=== PATIENT | male | born 1950 | race Caucasian/White ===

== ENCOUNTER 2020-04-21 07:27 | Inpatient (IN) | payer MEDICAID, MEDICARE ==
[~2020-04-21] VITALS: Ht 172.7 cm; Wt 77.7 kg
[2020-04-21] MEDS ORDERED: LIDOCAINE 2%, 20ML ONE (07:29)
[2020-04-21] MEDS ORDERED: FENTANYL PF 250 MCG/5ML ONE (07:29)
[2020-04-21] MEDS ORDERED: BIVALIRUDIN 250 MG ONE (07:29)
[2020-04-21] MEDS ORDERED: MIDAZOLAM 1 MG/ML, 5ML ONE (07:29)
[2020-04-21] MEDS ORDERED: ASPIRIN 325 MG TABLET PO STA (07:33)
--- NOTE | 2020-04-21 07:34 | NUR ---
CODE CARDIAC @ [id number] PAGED CARDS @ [id number]
--- NOTE | 2020-04-21 07:44 | NUR ---
to labor relations teacher at [id number]
[2020-04-21 07:51] LABS: BASOPHILS % (AUTO) 1 % (0-1); EOSINOPHILS % (AUTO) 2 % (1-7); LYMPHOCYTES % (AUTO) 12 % (22-44); MD NO; MEAN CORPUSCULAR HEMOGLOBIN 31.2 pg (27.5-34.5); MEAN CORPUSCULAR HGB CONC 33.5 g/dL (33.2-36.2); MEAN PLATELET VOLUME 7.1 fL (7.4-10.4); MONOCYTES % (AUTO) 10 % (2-9); NEUTROPHILS % (AUTO) 75 % (42-75); PLATELET COUNT 345 x10^3/uL (130-400); RED BLOOD COUNT 4.38 x10^6/uL (4.38-5.82); RED CELL DISTRIBUTION WIDTH 14.3 % (9.4-14.8)
[2020-04-21] MEDS ORDERED: PLEASE ENTER ALLERGIES MC SCH (08:00)
[2020-04-21] MEDS ORDERED: SODIUM CHLORIDE FLUSH 10ML SYR IVF PRN (08:00)
[2020-04-21 08:04] LABS: INTERNATIONAL NORMALIZED RATIO 1.03 (0.93-1.1)
[2020-04-21] MEDS ORDERED: AMIODARONE 50 MG/ML, 3ML ONE (08:06)
[2020-04-21] MEDS ORDERED: FUROSEMIDE 40 MG/4 ML ONE (08:08)
[2020-04-21 08:11] LABS: TROPONIN I 0.413 ng/mL (0.000-0.045)
[2020-04-21] MEDS ORDERED: PRASUGREL 10 MG TABLET ONE (08:15)
[2020-04-21] MEDS: PRASUGREL 10 MG TABLET PO SCH (09:00)
[2020-04-21] MEDS ORDERED: NITROGLYCERIN 0.4 MG BOTTLE (25 TABS) SL PRN (09:00)
[2020-04-21] MEDS ORDERED: BIVALIRUDIN 250 MG in SODIUM CHLORIDE 0.9% 50 ML IV SCH (09:00)
[2020-04-21] MEDS ORDERED: NITROGLYCERIN 0.4 MG/SPRAY SL PRN (09:00)
[2020-04-21] MEDS ORDERED: morphine SULFATE 10 MG/ML, 1ML IVPush PRN (09:00)
[2020-04-21] MEDS ORDERED: ZOLPIDEM 5MG TABLET PO PRN (09:00)
[2020-04-21] MEDS ORDERED: BISACODYL 5 MG EC TABLET PO PRN (09:00)
[2020-04-21] MEDS: METOPROLOL TARTRATE 25 MG TAB PO SCH ×2 (09:30→20:24)
[2020-04-21] MEDS ORDERED: LORazepam 2 MG/ML, 1ML IVPush PRN (14:30)
[2020-04-21 15:20] LABS: ALBUMIN 2.9 g/dL (3.4-5.0); ANION GAP 7 mmol/L (5-15); CALCIUM 8.4 mg/dL (8.5-10.1); CHLORIDE 107 mmol/L (98-107)
[2020-04-21 15:22] LABS: ALANINE AMINOTRANSFERASE 41 U/L (12-78); ALKALINE PHOSPHATASE 75 U/L (45-117); BILIRUBIN,TOTAL 0.2 mg/dL (0.2-1.0); CREATININE 0.83 mg/dL (0.7-1.3); TOTAL PROTEIN 7.1 g/dL (6.4-8.2)
[2020-04-21] MEDS: NICOTINE 21 MG/24 HR PATCH.TD24 TD SCH (15:41)
[2020-04-21] MEDS: CHLORDIAZEPOXIDE 25 MG CAPSULE PO SCH ×2 (15:41→20:25)
[2020-04-21] MEDS: THIAMINE 200 MG in SODIUM CHLORIDE 0.9% 50 ML IV SCH (15:42)
[2020-04-21] MEDS ORDERED: MAGNESIUM SULFATE PMX 2GM/50ML 50 ML IV ONE (17:00)
[2020-04-21] MEDS ORDERED: POTASSIUM CHLORIDE 30 MEQ in SODIUM CHLORIDE 0.9% 1,000 ML IV SCH (17:00)
[2020-04-21 17:06] LABS: CLOSTRIDIUM DIFFICILE ANTIGEN NEGATIVE; CLOSTRIDIUM DIFFICILE TOXIN NEGATIVE (Negative)
[2020-04-21] MEDS ORDERED: LOPERAMIDE 2 MG CAPSULE PO PRN (17:30)
[2020-04-21] MEDS: ATORVASTATIN 80 MG TABLET PO SCH (20:25)
[2020-04-22] MEDS: CHLORDIAZEPOXIDE 25 MG CAPSULE PO SCH ×5 (02:30→21:23)
[2020-04-22 04:38] LABS: ANION GAP 7 mmol/L (5-15); CHLORIDE 107 mmol/L (98-107)
[2020-04-22 04:40] LABS: CREATININE 0.71 mg/dL (0.7-1.3)
[2020-04-22] MEDS: ASPIRIN 81 MG TABLET EC PO SCH (06:01)
[2020-04-22] MEDS: METOPROLOL TARTRATE 25 MG TAB PO SCH ×2 (09:00→21:25)
[2020-04-22 09:19] LABS: BASOPHILS % (AUTO) 1 % (0-1); EOSINOPHILS % (AUTO) 2 % (1-7); LYMPHOCYTES % (AUTO) 14 % (22-44); MEAN CORPUSCULAR HEMOGLOBIN 30.7 pg (27.5-34.5); MEAN CORPUSCULAR HGB CONC 33.3 g/dL (33.2-36.2); MEAN PLATELET VOLUME 7.8 fL (7.4-10.4); MONOCYTES % (AUTO) 10 % (2-9); NEUTROPHILS % (AUTO) 74 % (42-75); PLATELET COUNT 397 x10^3/uL (130-400); RED CELL DISTRIBUTION WIDTH 14.8 % (9.4-14.8)
[2020-04-22 09:20] LABS: MD NO
[2020-04-22] MEDS: SODIUM CHLORIDE FLUSH 10ML SYR IVF SCH ×2 (09:32→21:26)
[2020-04-22] MEDS: NICOTINE 21 MG/24 HR PATCH.TD24 TD SCH (09:32)
[2020-04-22] MEDS: PRASUGREL 10 MG TABLET PO SCH (09:32)
[2020-04-22] MEDS: THIAMINE 200 MG in SODIUM CHLORIDE 0.9% 50 ML IV SCH (09:32)
[2020-04-22 10:53] LABS: ALANINE AMINOTRANSFERASE 40 U/L (12-78); ALBUMIN 2.8 g/dL (3.4-5.0)
[2020-04-22 10:56] LABS: ALKALINE PHOSPHATASE 69 U/L (45-117); BILIRUBIN,TOTAL 0.5 mg/dL (0.2-1.0); TOTAL PROTEIN 6.6 g/dL (6.4-8.2)
[2020-04-22] MEDS: PANTOPRAZOLE 40MG TABLET PO SCH (17:00)
[2020-04-22 18:00] VITALS: BP 97/66
[2020-04-22 21:20] VITALS: BP 106/73
[2020-04-22] MEDS: ATORVASTATIN 80 MG TABLET PO SCH (21:23)
[2020-04-23 02:31] VITALS: BP 94/58
[2020-04-23] MEDS: CHLORDIAZEPOXIDE 25 MG CAPSULE PO SCH ×4 (02:39→21:01)
[2020-04-23 04:52] LABS: BASOPHILS % (AUTO) 1 % (0-1); EOSINOPHILS % (AUTO) 3 % (1-7); LYMPHOCYTES % (AUTO) 20 % (22-44); MEAN CORPUSCULAR HEMOGLOBIN 31.5 pg (27.5-34.5); MEAN CORPUSCULAR HGB CONC 33.9 g/dL (33.2-36.2); MEAN PLATELET VOLUME 7.4 fL (7.4-10.4); MONOCYTES % (AUTO) 16 % (2-9); NEUTROPHILS % (AUTO) 61 % (42-75); PLATELET COUNT 382 x10^3/uL (130-400); RED BLOOD COUNT 4.53 x10^6/uL (4.38-5.82); RED CELL DISTRIBUTION WIDTH 14.5 % (9.4-14.8)
[2020-04-23 05:03] LABS: ANION GAP 5 mmol/L (5-15); CALCIUM 8.2 mg/dL (8.5-10.1); CHLORIDE 105 mmol/L (98-107)
[2020-04-23 05:04] LABS: CREATININE 0.74 mg/dL (0.7-1.3)
[2020-04-23 05:43] LABS: MD SCAN
[2020-04-23] MEDS: PANTOPRAZOLE 40MG TABLET PO SCH ×2 (05:58→16:59)
[2020-04-23] MEDS: ASPIRIN 81 MG TABLET EC PO SCH (05:59)
[2020-04-23 07:08] VITALS: BP 96/64
[2020-04-23] MEDS ORDERED: LORazepam 0.5MG TABLET PO PRN (08:00)
[2020-04-23] MEDS ORDERED: LORazepam 1MG TABLET PO PRN ×3 (08:00)
[2020-04-23] MEDS ORDERED: LORazepam 2 MG/ML, 1ML IV PRN ×5 (08:00)
[2020-04-23 08:09] VITALS: BP 96/62
[2020-04-23] MEDS: METOPROLOL TARTRATE 25 MG TAB PO SCH ×2 (08:10→21:02)
[2020-04-23] MEDS: PRASUGREL 10 MG TABLET PO SCH (08:11)
[2020-04-23] MEDS: SODIUM CHLORIDE FLUSH 10ML SYR IVF SCH ×2 (08:12→21:02)
[2020-04-23] MEDS: NICOTINE 21 MG/24 HR PATCH.TD24 TD SCH (08:12)
[2020-04-23] MEDS: THIAMINE 200 MG in SODIUM CHLORIDE 0.9% 50 ML IV SCH (08:27)
[2020-04-23] MEDS ORDERED: MOVIPREP POWDER 1 PREP KIT PO ONE (12:30)
[2020-04-23 15:50] VITALS: BP 101/66
[2020-04-23] MEDS: LORazepam 1MG TABLET PO PRN (16:59)
[2020-04-23 19:04] VITALS: BP 123/81
[2020-04-23] MEDS: ATORVASTATIN 80 MG TABLET PO SCH (21:02)
[2020-04-24 00:07] VITALS: BP 110/75
[2020-04-24] MEDS: CHLORDIAZEPOXIDE 25 MG CAPSULE PO SCH ×4 (03:33→20:01)
[2020-04-24 05:03] LABS: ANION GAP 7 mmol/L (5-15); CALCIUM 8.1 mg/dL (8.5-10.1); CHLORIDE 107 mmol/L (98-107); CREATININE 0.78 mg/dL (0.7-1.3)
[2020-04-24] MEDS: PANTOPRAZOLE 40MG TABLET PO SCH ×3 (06:13→15:00)
[2020-04-24 06:22] VITALS: BP 105/63
[2020-04-24] MEDS: METOPROLOL TARTRATE 25 MG TAB PO SCH ×2 (07:59→20:01)
[2020-04-24] MEDS: NICOTINE 21 MG/24 HR PATCH.TD24 TD SCH (08:00)
[2020-04-24] MEDS: SODIUM CHLORIDE FLUSH 10ML SYR IVF SCH ×2 (08:00→21:21)
[2020-04-24] MEDS: THIAMINE 200 MG in SODIUM CHLORIDE 0.9% 50 ML IV SCH (08:23)
[2020-04-24] MEDS: PRASUGREL 10 MG TABLET PO SCH (08:23)
[2020-04-24] MEDS: ASPIRIN 81 MG TABLET EC PO SCH (08:23)
[2020-04-24] MEDS ORDERED: CHLORHEXIDINE 15 ML UDC ONE (09:45)
[2020-04-24] MEDS ORDERED: PROPOFOL 50 ML ONE (10:20)
[2020-04-24] MEDS ORDERED: LABETALOL 5MG/ML, 20ML IV PRN (10:30)
[2020-04-24] MEDS ORDERED: hydrALAzine 20 MG/ML, 1ML IV PRN (10:30)
[2020-04-24] MEDS ORDERED: OXYcodone 5 MG/5 ML ORAL.SOL UDC PO PRN (10:30)
[2020-04-24] MEDS ORDERED: ALBUTEROL SULFATE 2.5 MG/3 ML NPPB PRN (10:30)
[2020-04-24] MEDS ORDERED: FENTANYL PF 100 MCG/2ML IV PRN (10:30)
[2020-04-24] MEDS ORDERED: ONDANSETRON 2MG/ML, 2ML IVPush PRN (10:30)
[2020-04-24] MEDS: MESALAMINE 1,000 MG SUPP.RECT PR SCH ×2 (11:00→21:21)
[2020-04-24] MEDS ORDERED: PROPOFOL 10 MG/ML, 20ML ONE (11:04)
[2020-04-24] MEDS: LORazepam 1MG TABLET PO PRN (12:20)
[2020-04-24 13:16] VITALS: BP 101/72
[2020-04-24 19:57] VITALS: BP 111/73
[2020-04-24] MEDS: ATORVASTATIN 80 MG TABLET PO SCH (20:01)
[2020-04-25 00:37] VITALS: BP 106/72
[2020-04-25] MEDS: CHLORDIAZEPOXIDE 25 MG CAPSULE PO SCH ×3 (04:25→13:44)
[2020-04-25] MEDS: PANTOPRAZOLE 40MG TABLET PO SCH ×2 (06:29→13:43)
[2020-04-25] MEDS: ASPIRIN 81 MG TABLET EC PO SCH (06:29)
[2020-04-25 06:34] VITALS: BP 122/85
[2020-04-25] MEDS: NICOTINE 21 MG/24 HR PATCH.TD24 TD SCH (07:54)
[2020-04-25] MEDS: PRASUGREL 10 MG TABLET PO SCH (07:55)
[2020-04-25] MEDS: SODIUM CHLORIDE FLUSH 10ML SYR IVF SCH (07:55)
[2020-04-25] MEDS: METOPROLOL TARTRATE 25 MG TAB PO SCH (07:55)
[2020-04-25 07:58] LABS: ANION GAP 4 mmol/L (5-15); CALCIUM 9.2 mg/dL (8.5-10.1); CHLORIDE 107 mmol/L (98-107); CREATININE 0.82 mg/dL (0.7-1.3)
[2020-04-25] MEDS: MESALAMINE 1,000 MG SUPP.RECT PR SCH (09:00)
[2020-04-25] MEDS: THIAMINE 200 MG in SODIUM CHLORIDE 0.9% 50 ML IV SCH (09:00)
[2020-04-25] MEDS ORDERED: PRED20TA PO (11:04)
[2020-04-25] MEDS ORDERED: ATOR-2 PO (11:04)
[2020-04-25] MEDS ORDERED: [UNRECOGNIZED DRUG - CODE] PR (11:04)
[2020-04-25] MEDS ORDERED: LOPE2CAP PO (11:04)
[2020-04-25] MEDS ORDERED: PANT40TA6 PO (11:04)
[2020-04-25] MEDS ORDERED: ASPI81TA45 PO (11:04)
[2020-04-25] MEDS ORDERED: PRAS10TA4 PO (11:04)
[2020-04-25] MEDS ORDERED: METO25TA35 PO (11:04)
[2020-04-25 13:08] VITALS: BP 103/71
[2020-04-26] MEDS ORDERED: NICO-587 TD (22:27)
[2020-04-27] MEDS ORDERED: LORA-445 PO (02:13)
== END 2020-04-25 17:56 | DRG 246 ==
LOC: MERGE 07:27 → EDBD 07:27 → ED 08:00 → EDIP 08:20 → CCU 08:44 → 5SO 04-22 17:44
PROVIDERS: ADMIT Internal Medicine Cardiovascular Disease; ATTEND Hospitalist
PROC: 027035Z Dilation of Coronary Artery, One Artery with Two Drug-eluting Intraluminal Devices, Percutaneous Approach (ICD-10-PCS; principal; 2020-04-21)
PROC: 4A023N7 Measurement of Cardiac Sampling and Pressure, Left Heart, Percutaneous Approach (ICD-10-PCS; 2020-04-21)
PROC: B2111ZZ Fluoroscopy of Multiple Coronary Arteries using Low Osmolar Contrast (ICD-10-PCS; 2020-04-21)
PROC: B2151ZZ Fluoroscopy of Left Heart using Low Osmolar Contrast (ICD-10-PCS; 2020-04-21)
PROC: 0DB98ZX Excision of Duodenum, Via Natural or Artificial Opening Endoscopic, Diagnostic (ICD-10-PCS; 2020-04-24)
PROC: 0DB18ZX Excision of Upper Esophagus, Via Natural or Artificial Opening Endoscopic, Diagnostic (ICD-10-PCS; 2020-04-24)
PROC: 0DB68ZX Excision of Stomach, Via Natural or Artificial Opening Endoscopic, Diagnostic (ICD-10-PCS; 2020-04-24)
PROC: 0DBL8ZX Excision of Transverse Colon, Via Natural or Artificial Opening Endoscopic, Diagnostic (ICD-10-PCS; 2020-04-24)
DX: I21.09 ST elevation (STEMI) myocardial infarction involving other coronary artery of anterior wall (principal); K57.91 Diverticulosis of intestine, part unspecified, without perforation or abscess with bleeding; K25.4 Chronic or unspecified gastric ulcer with hemorrhage; E87.1 Hypo-osmolality and hyponatremia; F10.239 Alcohol dependence with withdrawal, unspecified; K51.911 Ulcerative colitis, unspecified with rectal bleeding; E78.5 Hyperlipidemia, unspecified; F12.90 Cannabis use, unspecified, uncomplicated; F17.200 Nicotine dependence, unspecified, uncomplicated; D72.828 Other elevated white blood cell count; I08.0 Rheumatic disorders of both mitral and aortic valves; I25.10 Atherosclerotic heart disease of native coronary artery without angina pectoris; Z20.822 Contact with and (suspected) exposure to COVID-19; N40.0 Benign prostatic hyperplasia without lower urinary tract symptoms; K44.9 Diaphragmatic hernia without obstruction or gangrene; K22.70 Barrett's esophagus without dysplasia; J44.9 Chronic obstructive pulmonary disease, unspecified; I27.20 Pulmonary hypertension, unspecified; Z79.82 Long term (current) use of aspirin; I25.2 Old myocardial infarction; Z79.899 Other long term (current) drug therapy
CPT/HCPCS: 36415; 71045; 80047; 80048; 80053; 83735; 84100; 84484; 85014; 85018; 85025; 85610; 85730; 87081; 87324; 87635; 88305; 93005; 93306; 93458; 96374; 96375; 99156; 99157; 99285; C1760; C1769; C1894; G0378; J0583; J1940; J2250; J2704; J3010; J3411; J3480; C1725; C1874; C1887; J0282; J2060; J3475; J7030; J7512; Q9967

== ENCOUNTER 2020-05-12 16:58 | Inpatient (IN) | payer OTHER ==
[~2020-05-12] VITALS: Ht 182.9 cm; Wt 85.2 kg
[2020-05-12] VITALS (7 sets, daily range): BP systolic 93–122; BP diastolic 53–76
[~2020-05-12 16:58] MED LIST: ASPI81TA45 PO; ATOR-2 PO; CHOL200052 PO; FINA5TAB4 PO; LOPE2CAP PO; LORA-445 PO; MESA800T9 PO; METO25TA35 PO; NICO-587 TD; OMEP20CA20 PO; PANT40TA6 PO; PRAS10TA4 PO; PRED10TA PO; PRED20TA PO; QUET25TA7 PO; TAMS-11 PO; TIOT18CA INH; TRAZ-96 PO; [UNRECOGNIZED DRUG - CODE] PR
[2020-05-12] MEDS ORDERED: PANTOPRAZOLE 80 MG in SODIUM CHLORIDE 0.9% 50 ML IVPB ONE (17:30)
[2020-05-12] MEDS ORDERED: SODIUM CHLORIDE FLUSH 10ML SYR IVF ONE (17:30)
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
[2020-05-12 17:57] LABS: BASOPHILS % (AUTO) 1 % (0-1); EOSINOPHILS % (AUTO) 1 % (1-7); LYMPHOCYTES % (AUTO) 17 % (22-44); MEAN CORPUSCULAR HEMOGLOBIN 30.4 pg (27.5-34.5); MEAN CORPUSCULAR HGB CONC 32.8 g/dL (33.2-36.2); MEAN PLATELET VOLUME 6.6 fL (7.4-10.4); MONOCYTES % (AUTO) 10 % (2-9); NEUTROPHILS % (AUTO) 72 % (42-75); PLATELET COUNT 508 x10^3/uL (130-400); RED BLOOD COUNT 2.16 x10^6/uL (4.38-5.82); RED CELL DISTRIBUTION WIDTH 16.2 % (9.4-14.8)
[2020-05-12 18:00] LABS: INTERNATIONAL NORMALIZED RATIO 0.98 (0.93-1.1); PROTHROMBIN TIME 10.5 Seconds (9.6-11.5)
[2020-05-12 18:01] LABS: ALANINE AMINOTRANSFERASE 14 U/L (12-78); ALBUMIN 2.9 g/dL (3.4-5.0); ANION GAP 6 mmol/L (5-15); CHLORIDE 109 mmol/L (98-107); CREATININE 0.95 mg/dL (0.7-1.3)
[2020-05-12 18:02] LABS: MD NO
[2020-05-12 18:04] LABS: ALKALINE PHOSPHATASE 54 U/L (45-117); BILIRUBIN,TOTAL 0.3 mg/dL (0.2-1.0); TOTAL PROTEIN 5.7 g/dL (6.4-8.2)
[2020-05-12] MEDS ORDERED: ONDANSETRON 2MG/ML, 2ML IVPush PRN (20:30)
[2020-05-12] MEDS ORDERED: BISACODYL 10 MG SUPP PR PRN (20:30)
[2020-05-12] MEDS ORDERED: OXYcodone IR 5MG TABLET PO PRN (20:30)
[2020-05-12] MEDS ORDERED: hydrALAzine 20 MG/ML, 1ML IVPush PRN (20:30)
[2020-05-12] MEDS: SODIUM CHLORIDE 0.9% 1,000 ML IV SCH (20:30)
[2020-05-12] MEDS ORDERED: POLYETHYLENE GLYCOL 17 GM PACKET PO PRN (20:30)
[2020-05-12] MEDS ORDERED: PROMETHAZINE 25 MG/ML, 1ML IM PRN (20:30)
[2020-05-12] MEDS ORDERED: ACETAMINOPHEN 325 MG TABLET PO PRN (20:30)
[2020-05-12] MEDS ORDERED: ONDANSETRON ODT 4 MG PO PRN (20:30)
[2020-05-12] MEDS ORDERED: DOCUSATE 100 MG CAPSULE PO PRN (20:30)
[2020-05-12 20:53] LABS: HCT (SEDRATE) 20.1 % (39.2-51.8)
[2020-05-12] MEDS ORDERED: ZOLPIDEM 5MG TABLET PO ONE (22:00)
[2020-05-12] MEDS ORDERED: ATORVASTATIN 80 MG TABLET PO SCH (22:00)
[2020-05-12] MEDS ORDERED: ENOXAPARIN 40 MG/0.4 ML SQ SCH (22:30)
[2020-05-12] MEDS: MESALAMINE 400 MG CAPSULE.DR PO SCH (22:52)
[2020-05-12] MEDS: METOPROLOL TARTRATE 25 MG TAB PO SCH (22:55)
[2020-05-13 01:05] VITALS: BP 111/71
[2020-05-13 02:47] VITALS: BP 114/73
[2020-05-13] MEDS: SODIUM CHLORIDE 0.9% 1,000 ML IV SCH (02:51)
[2020-05-13 03:43] LABS: ALANINE AMINOTRANSFERASE 12 U/L (12-78); ALBUMIN 2.5 g/dL (3.4-5.0); ANION GAP 4 mmol/L (5-15); CALCIUM 7.4 mg/dL (8.5-10.1); CHLORIDE 108 mmol/L (98-107); CHOLESTEROL, TOTAL 92 mg/dL (140-239); TRIGLYCERIDES 57 mg/dL (50-200); VLDL CHOLESTEROL 11 mg/dL (0-25)
[2020-05-13 03:53] LABS: ALKALINE PHOSPHATASE 46 U/L (45-117); BILIRUBIN,TOTAL 0.9 mg/dL (0.2-1.0); CHOL/HDL RATIO 1.5; HDL CHOL % 65 % (26-37); HDL CHOLESTEROL (DIRECT) 60 mg/dL (40-60); LDL CHOLESTEROL,CALCULATED 21 mg/dL (54-169); LDL/HDL RATIO 0.4 (0.5-3.0); TOTAL PROTEIN 5.1 g/dL (6.4-8.2)
[2020-05-13] MEDS ORDERED: ASPIRIN 81 MG TABLET EC PO SCH (06:00)
[2020-05-13] MEDS ORDERED: PANTOPRAZOLE 40MG TABLET PO SCH (06:00)
[2020-05-13 06:43] VITALS: BP 105/67
[2020-05-13] MEDS ORDERED: OMEPRAZOLE 20 MG CAPSULE.DR PO SCH (07:30)
[2020-05-13] MEDS: MESALAMINE 400 MG CAPSULE.DR PO SCH (08:46)
[2020-05-13] MEDS: METOPROLOL TARTRATE 25 MG TAB PO SCH (08:47)
[2020-05-13] MEDS ORDERED: FINASTERIDE 5 MG TABLET PO SCH (09:00)
[2020-05-13] MEDS ORDERED: TAMSULOSIN 0.4 MG CAP.ER.24H PO SCH (09:00)
[2020-05-13] MEDS ORDERED: PRASUGREL 10 MG TABLET PO SCH (09:00)
[2020-05-13] MEDS ORDERED: NICOTINE 21 MG/24 HR PATCH.TD24 TD SCH (09:00)
[2020-05-13] MEDS ORDERED: CHOLECALCIFEROL 1,000 UNIT TABLET PO SCH (09:00)
[2020-05-13] MEDS ORDERED: TIOTROPIUM BROMIDE 18 MCG/INH INH SCH (09:00)
[2020-05-13] MEDS ORDERED: POTASSIUM CHLORIDE 20 MEQ, MAGNESIUM SULFATE 1 GM, THIAMINE 200 MG, FOLIC ACID 1 MG in ... IV SCH (09:30)
[2020-05-13] MEDS: CHLORDIAZEPOXIDE 25 MG CAPSULE PO SCH ×2 (09:42→11:00)
[2020-05-13] MEDS ORDERED: PRED20TA PO (11:29)
[2020-05-13] MEDS ORDERED: MESA800T9 PO (11:37)
[2020-05-13] MEDS ORDERED: TRAZODONE 50MG TABLET PO SCH (21:00)
== END 2020-05-13 12:51 | disposition home or self-care (01) | DRG 386 ==
LOC: ED 18:13 → EDIP 18:22 → 4EST 19:47
PROVIDERS: ADMIT Internal Medicine; ATTEND Hospitalist
PROC: 30233N1 Transfusion of Nonautologous Red Blood Cells into Peripheral Vein, Percutaneous Approach (ICD-10-PCS; principal; 2020-05-12)
DX: K51.311 Ulcerative (chronic) rectosigmoiditis with rectal bleeding (principal); F10.139 Alcohol abuse with withdrawal, unspecified; D64.9 Anemia, unspecified; E78.5 Hyperlipidemia, unspecified; F17.210 Nicotine dependence, cigarettes, uncomplicated; I10 Essential (primary) hypertension; N40.0 Benign prostatic hyperplasia without lower urinary tract symptoms; J44.9 Chronic obstructive pulmonary disease, unspecified; I25.10 Atherosclerotic heart disease of native coronary artery without angina pectoris; I25.2 Old myocardial infarction; K22.70 Barrett's esophagus without dysplasia; Z80.3 Family history of malignant neoplasm of breast; Z95.5 Presence of coronary angioplasty implant and graft; K29.70 Gastritis, unspecified, without bleeding; F15.10 Other stimulant abuse, uncomplicated
CPT/HCPCS: 36415; 36430; 80053; 80061; 83036; 84443; 85014; 85018; 85025; 85610; 85651; 86140; 86480; 86850; 86900; 86923; 87340; 93005; G0378; J1650; J3411; J3475; J3480; C9113; J7030; P9016